=== PATIENT | male | born 1980 | race Caucasian/White ===

== ENCOUNTER → 2018-04-17 | Outpatient (CLI) | payer OTHER | LOC: COL.RAD 07:27 | DX: S46.011A Strain of muscle(s) and tendon(s) of the rotator cuff of right shoulder, initial encounter (principal); M19.011 Primary osteoarthritis, right shoulder; X58.XXXA Exposure to other specified factors, initial encounter; Y99.0 Civilian activity done for income or pay | CPT/HCPCS: A9585; Q9967 ==

== ENCOUNTER 2018-04-19 09:13 | Outpatient (RCR) | payer OTHER | END 2018-04-23 14:40 | disposition home or self-care (01) | LOC: WSOH 09:13 | DX: S46.011A Strain of muscle(s) and tendon(s) of the rotator cuff of right shoulder, initial encounter (principal); X58.XXXA Exposure to other specified factors, initial encounter; Y92.59 Other trade areas as the place of occurrence of the external cause; Y99.0 Civilian activity done for income or pay; Z79.1 Long term (current) use of non-steroidal anti-inflammatories (NSAID) ==

== ENCOUNTER 2018-05-02 05:29 | Day surgery (SDC) | payer OTHER ==
[~2018-05-02] VITALS: Ht 170.2 cm; Wt 99.2 kg
[2018-05-02 06:10] VITALS: BP 122/81; PULSE 54; TEMP 97.3
[2018-05-02 10:05] VITALS: BP 128/87; PULSE 63; TEMP 97.4
[2018-05-02 10:20] VITALS: BP 132/82; PULSE 63
[2018-05-02 10:35] VITALS: BP 133/82; PULSE 64
[2018-05-02] MEDS ORDERED: NORCO 325 MG-7.1 TAB PO (10:36)
[2018-05-02] MEDS ORDERED: ROXICODONE 55 MG/TAB PO (10:37)
[2018-05-02 10:50] VITALS: BP 127/92; PULSE 73
[2018-05-02 11:05] VITALS: BP 126/78; PULSE 73
== END 2018-05-02 15:21 | disposition home or self-care (01) ==
LOC: SDCO 05:29
DX: S46.011A Strain of muscle(s) and tendon(s) of the rotator cuff of right shoulder, initial encounter (principal); S46.111A Strain of muscle, fascia and tendon of long head of biceps, right arm, initial encounter; Z98.52 Vasectomy status
CPT/HCPCS: C1713; J0171; J1885; J2250; J2405; J2704; J2795; J3010; J7120

== ENCOUNTER → 2019-06-21 | Outpatient (CLI) | payer BC ==
[~2019-06-21] MED LIST: NORCO 325 MG-7.1 TAB PO; ROXICODONE 55 MG/TAB PO
== END ==
LOC: COL.RAD 09:36
DX: C62.12 Malignant neoplasm of descended left testis (principal); N20.0 Calculus of kidney; Z90.79 Acquired absence of other genital organ(s)
CPT/HCPCS: Q9967

== ENCOUNTER → 2020-01-06 | Outpatient (CLI) | payer BC | LOC: COL.RAD 09:12 | DX: K76.0 Fatty (change of) liver, not elsewhere classified (principal) ==

== ENCOUNTER → 2020-07-08 | Outpatient (CLI) | payer BC | LOC: COL.RAD 07:38 | DX: C62.90 Malignant neoplasm of unspecified testis, unspecified whether descended or undescended (principal); N28.1 Cyst of kidney, acquired; Z90.79 Acquired absence of other genital organ(s) | CPT/HCPCS: Q9967 ==

== ENCOUNTER 2020-11-14 13:06 | Inpatient (IN) | payer BC ==
[~2020-11-14] VITALS: Ht 167.6 cm; Wt 96.0 kg
[2020-11-14] VITALS (189 sets, daily range): BP systolic 108–124; BP diastolic 69–81; PULSE 76–84; TEMP 98.2–100.9; O2SAT 84–98
[2020-11-14 13:52] LABS: BASO % 0.3 % (0.0-2.0); GRAN # 5.9 (1.4-6.5); GRAN % 81.5 % (42.2-75.2); HEMATOCRIT 37.3 % (42.0-52.0); HEMOGLOBIN 13.4 g/dl (13.5-18.0); LYMPH # 0.8 (1.2-3.4); LYMPH % 10.9 % (20.0-51.0); MEAN CELL VOLUME 82 fl (80.0-100.0); MEAN CORPUSCULAR HEMOGLOBIN 29 pg (27.0-31.0); MEAN CORPUSCULAR HGB CONC 36 g/dl (33.0-37.0); MEAN PLATELET VOLUME 9.4 fl (7.4-10.4); MONO # 0.5 (0.1-0.6); PLATELET COUNT 254 K/mm3 (130-400); RED BLOOD COUNT 4.56 M/mm3 (4.20-5.60); REDCELL DISTRIBUTION WIDTH-CV 12.7 % (11.5-14.5)
[2020-11-14 14:04] LABS: ALBUMIN 3.9 gm/dL (3.5-5.0); BILIRUBIN,TOTAL 0.9 mg/dL (0.0-1.0); CALCIUM 8.5 mg/dL (8.4-10.2); CREATININE, serum 0.92 (0.66-1.25); POTASSIUM 3.7 mmol/L (3.4-5.0); TOTAL PROTEIN 7.4 gm/dL (6.4-8.2)
[2020-11-14 14:28] LABS: C-REACTIVE PROTEIN 16.5 mg/dL (0.0-0.9)
[2020-11-15] VITALS (409 sets, daily range): BP systolic 108–126; BP diastolic 66–80; PULSE 68–77; TEMP 97.6–98.8; O2SAT 75–100
--- NOTE | 2020-11-15 03:32 | NUR ---
Patient had an uneventful night, vitals have been stable. Around 3am, he started coughing excessivly and desat to the low 80's. I gave him one dose of Robitussin. He doesn't complain of shortness of breath or any dizzyness. He stated he has a "tickle" in his throat. His vitals are currently, HR 86, BP is 122/80 and satting at 94.
--- NOTE | 2020-11-15 07:08 | NUR ---
Patient had an uneventful night other than a coughing episode at 3AM. He then fell asleep and around 530am he started desatting to the low 80's, Respiratory was called and they are currently still assisting the patient.
[2020-11-15 07:24] LABS: BASO % 0.1 % (0.0-2.0); GRAN # 6.7 (1.4-6.5); GRAN % 85.8 % (42.2-75.2); HEMATOCRIT 39.7 % (42.0-52.0); HEMOGLOBIN 13.4 g/dl (13.5-18.0); LYMPH # 0.6 (1.2-3.4); LYMPH % 7.4 % (20.0-51.0); MEAN CELL VOLUME 86 fl (80.0-100.0); MEAN CORPUSCULAR HEMOGLOBIN 29 pg (27.0-31.0); MEAN CORPUSCULAR HGB CONC 34 g/dl (33.0-37.0); MEAN PLATELET VOLUME 9.6 fl (7.4-10.4); MONO # 0.5 (0.1-0.6); MONO % 6.3 % (1.7-9.3); PLATELET COUNT 286 K/mm3 (130-400); RED BLOOD COUNT 4.62 M/mm3 (4.20-5.60); REDCELL DISTRIBUTION WIDTH-CV 12.9 % (11.5-14.5)
[2020-11-15 07:34] LABS: CALCIUM 8.6 mg/dL (8.4-10.2); CREATININE, serum 0.85 (0.66-1.25); MAGNESIUM 2.6 mg/dL (1.6-2.3)
--- NOTE | 2020-11-15 10:37 | NUR ---
SW met with patient via phone about care. Patient report that he resides locally with his Agnes . Patient reports that his PCP is Dr. Lozano and last appointment was six months ago. Patient reports that he uses [facility]. Patient indicated that he does not need any DME supports. Patient last +11/09. Ame is on high flow oxygen. Preliminary assessment, educated client on clinical review and watching for additional care needs. Following.
[2020-11-16] VITALS (780 sets, daily range): BP systolic 113–127; BP diastolic 72–84; PULSE 66–80; TEMP 98–98.8; O2SAT 62–99
[2020-11-16 05:49] LABS: BASO % 0.2 % (0.0-2.0); GRAN # 9.4 (1.4-6.5); GRAN % 86.6 % (42.2-75.2); HEMOGLOBIN 12.5 g/dl (13.5-18.0); LYMPH # 0.6 (1.2-3.4); LYMPH % 5.9 % (20.0-51.0); MEAN CELL VOLUME 84 fl (80.0-100.0); MEAN CORPUSCULAR HEMOGLOBIN 30 pg (27.0-31.0); MEAN CORPUSCULAR HGB CONC 35 g/dl (33.0-37.0); MEAN PLATELET VOLUME 9.8 fl (7.4-10.4); MONO # 0.7 (0.1-0.6); MONO % 6.7 % (1.7-9.3); PLATELET COUNT 295 K/mm3 (130-400); RED BLOOD COUNT 4.23 M/mm3 (4.20-5.60); REDCELL DISTRIBUTION WIDTH-CV 12.8 % (11.5-14.5)
[2020-11-16 05:51] LABS: HEMATOCRIT 35.5 % (42.0-52.0)
[2020-11-16 06:01] LABS: CALCIUM 8.6 mg/dL (8.4-10.2); CREATININE, serum 0.74 (0.66-1.25); MAGNESIUM 2.4 mg/dL (1.6-2.3); POTASSIUM 4.1 mmol/L (3.4-5.0)
--- NOTE | 2020-11-16 07:00 | NUR ---
RECEIVED REPORT FROM ESTELA LUCIO. ASSUMED CARE OF PT AT THIS TIME.
--- NOTE | 2020-11-16 11:30 | NUR ---
Track Greaser contacted Nicole Macario RN-CM at [facility] who advised they have no DPOA-HC on file for patient. Patient's legal next of kin is his , Agnse.
--- NOTE | 2020-11-16 13:56 | NUR ---
Chaplain martinez for patient while standing outside of door.
--- NOTE | 2020-11-16 19:23 | NUR ---
Received report from ESTELA Tomlinson. All medications verified and all questions answered. Patient in droplet/contact precautions d/t positive covid test result. Patient resting in bed on Bipap watching TV. VSS. Will resume care at this time.
[2020-11-17] VITALS (735 sets, daily range): BP systolic 113–134; BP diastolic 58–87; PULSE 62–91; TEMP 98.3–100.4; O2SAT 58–100
[2020-11-17 06:02] LABS: BASO % 0.2 % (0.0-2.0); EOS % 0.2 % (0-4.0); GRAN % 86.3 % (42.2-75.2); HEMATOCRIT 38.1 % (42.0-52.0); LYMPH # 0.9 (1.2-3.4); LYMPH % 7.4 % (20.0-51.0); MEAN CELL VOLUME 85 fl (80.0-100.0); MEAN CORPUSCULAR HEMOGLOBIN 29 pg (27.0-31.0); MEAN CORPUSCULAR HGB CONC 34 g/dl (33.0-37.0); MEAN PLATELET VOLUME 9.6 fl (7.4-10.4); MONO # 0.6 (0.1-0.6); MONO % 4.7 % (1.7-9.3); PLATELET COUNT 281 K/mm3 (130-400); RED BLOOD COUNT 4.48 M/mm3 (4.20-5.60); REDCELL DISTRIBUTION WIDTH-CV 12.9 % (11.5-14.5)
[2020-11-17 06:13] LABS: CALCIUM 8.6 mg/dL (8.4-10.2); CREATININE, serum 0.88 (0.66-1.25); MAGNESIUM 2.3 mg/dL (1.6-2.3); POTASSIUM 3.9 mmol/L (3.4-5.0)
--- NOTE | 2020-11-17 07:00 | NUR ---
RECEIVED REPORT FROM ESTELA WATERMAN. ASSUMED CARE OF PT AT THIS TIME.
--- NOTE | 2020-11-17 07:10 | NUR ---
PT'S OXYGEN SATURATION ON ICU MONITOR TO BE 65-75%. PT NOTED TO HAVE REMOVED BIPAP TO DRINK WATER. INSTRUCTED TO PLACE BIPAP BACK ON. PT'S WORK OF BREATHING APPEARS LABORED. AFTER BIPAP PLACED, SPO2 INCREASED TO 83-85% AND PT'S WORK OF BREATHING IMPROVING. RT AT BEDSIDE AT THIS TIME FOR ASSESSMENT. PT REMAINS ON BIPAP FOR THE TIME BEING TO MONITOR OXYGEN LEVEL. SPO2 NOW AT 90-92%.
[2020-11-18] VITALS (490 sets, daily range): BP systolic 82–134; BP diastolic 37–91; PULSE 68–88; TEMP 98.2–100.9; O2SAT 71–100
[2020-11-18 05:19] LABS: BASO % 0.1 % (0.0-2.0); EOS # 0.1 (0.0-0.7); EOS % 0.6 % (0-4.0); GRAN # 9.5 (1.4-6.5); GRAN % 85.1 % (42.2-75.2); HEMOGLOBIN 12.6 g/dl (13.5-18.0); LYMPH # 0.9 (1.2-3.4); LYMPH % 8.1 % (20.0-51.0); MEAN CELL VOLUME 84 fl (80.0-100.0); MEAN CORPUSCULAR HEMOGLOBIN 30 pg (27.0-31.0); MEAN CORPUSCULAR HGB CONC 35 g/dl (33.0-37.0); MEAN PLATELET VOLUME 9.5 fl (7.4-10.4); MONO # 0.5 (0.1-0.6); MONO % 4.8 % (1.7-9.3); PLATELET COUNT 230 K/mm3 (130-400); RED BLOOD COUNT 4.24 M/mm3 (4.20-5.60); REDCELL DISTRIBUTION WIDTH-CV 12.8 % (11.5-14.5)
[2020-11-18 05:21] LABS: HEMATOCRIT 35.6 % (42.0-52.0)
[2020-11-18 05:28] LABS: CALCIUM 8.6 mg/dL (8.4-10.2); CREATININE, serum 0.75 (0.66-1.25); MAGNESIUM 2.3 mg/dL (1.6-2.3); POTASSIUM 3.9 mmol/L (3.4-5.0)
[2020-11-18 06:04] LABS: ARTERIAL BLD GAS O2 SATURATION 93.9 % (92-100); ARTERIAL BLD GAS TCO2 CT 25.7; ARTERIAL BLOOD GAS BASE EXCESS 1.2 (-2-2); ARTERIAL BLOOD GAS HCO3 24.6 meq/L (22-26); ARTERIAL BLOOD GAS PCO2 35.2 mmHg (35-45); ARTERIAL BLOOD GAS PO2 70.3 mmHg (80-100); ARTERIAL BLOOD GAS pH 7.46 (7.35-7.45)
--- NOTE | 2020-11-18 06:24 | NUR ---
Patient had an uneventful night. He was on the bipap during his sleeping hours and maintained his saturation above 90 percent. Twice he desatted to the low 80's and high 70's when he went to use the urinal. But his saturations returned upon rest. The patient had a temperature of 100.9 around 4AM and he received tylenol. He is currently resting and vitals are stable. He is back on the Airvo and maintaining a saturation of 92.
--- NOTE | 2020-11-18 07:00 | NUR ---
RECEIVED REPORT FROM ESTELA LUCIO. ASSUMED CARE OF PT AT THIS TIME.
--- NOTE | 2020-11-18 15:16 | NUR ---
Cnc Cutting Operator contacted patient's , Agnes to introduce self and check in. Agnes denies any concerns at this time and SW will continue to follow.
[2020-11-19] VITALS (560 sets, daily range): BP systolic 108–123; BP diastolic 60–77; PULSE 66–91; TEMP 97.1–98.9; O2SAT 73–100
[2020-11-19 05:23] LABS: BASO % 0.2 % (0.0-2.0); EOS # 0.1 (0.0-0.7); EOS % 0.6 % (0-4.0); GRAN % 86.3 % (42.2-75.2); HEMOGLOBIN 12.9 g/dl (13.5-18.0); LYMPH # 0.7 (1.2-3.4); LYMPH % 5.8 % (20.0-51.0); MEAN CELL VOLUME 84 fl (80.0-100.0); MEAN CORPUSCULAR HEMOGLOBIN 29 pg (27.0-31.0); MEAN CORPUSCULAR HGB CONC 35 g/dl (33.0-37.0); MEAN PLATELET VOLUME 9.7 fl (7.4-10.4); MONO # 0.7 (0.1-0.6); MONO % 5.8 % (1.7-9.3); PLATELET COUNT 249 K/mm3 (130-400); RED BLOOD COUNT 4.43 M/mm3 (4.20-5.60); REDCELL DISTRIBUTION WIDTH-CV 12.7 % (11.5-14.5)
[2020-11-19 05:31] LABS: CALCIUM 8.7 mg/dL (8.4-10.2); CREATININE, serum 0.73 (0.66-1.25); MAGNESIUM 2.5 mg/dL (1.6-2.3); POTASSIUM 4.5 mmol/L (3.4-5.0)
[2020-11-19 10:18] LABS: ALBUMIN 3.2 gm/dL (3.5-5.0); BILIRUBIN UNCONJUGATED 0.5 mg/dL (0.0-1.1); BILIRUBIN,DIRECT 0.2 mg/dL (0.0-0.4); BILIRUBIN,TOTAL 0.7 mg/dL (0.0-1.0); TOTAL PROTEIN 6.5 gm/dL (6.4-8.2)
--- NOTE | 2020-11-19 19:10 | NUR ---
Report given to ESTELA Mclaughlin
[2020-11-20] VITALS (186 sets, daily range): BP systolic 101–112; BP diastolic 68–80; PULSE 65–92; TEMP 98–99; O2SAT 43–99
[2020-11-20 05:20] LABS: BASO % 0.2 % (0.0-2.0); EOS # 0.1 (0.0-0.7); EOS % 0.9 % (0-4.0); HEMATOCRIT 38.9 % (42.0-52.0); HEMOGLOBIN 13.4 g/dl (13.5-18.0); LYMPH # 0.7 (1.2-3.4); LYMPH % 5.7 % (20.0-51.0); MEAN CELL VOLUME 84 fl (80.0-100.0); MEAN CORPUSCULAR HEMOGLOBIN 29 pg (27.0-31.0); MEAN CORPUSCULAR HGB CONC 34 g/dl (33.0-37.0); MEAN PLATELET VOLUME 9.7 fl (7.4-10.4); MONO # 0.9 (0.1-0.6); PLATELET COUNT 282 K/mm3 (130-400); RED BLOOD COUNT 4.62 M/mm3 (4.20-5.60); REDCELL DISTRIBUTION WIDTH-CV 12.9 % (11.5-14.5)
[2020-11-20 05:31] LABS: CREATININE, serum 0.71 (0.66-1.25); POTASSIUM 4.5 mmol/L (3.4-5.0)
--- NOTE | 2020-11-20 08:30 | NUR ---
Patient lying in bed with Airvo in place. He is currently on 60L/80% FiO2 and maintaining at 95%. Patient tolerating this well. He states that he still gets very short of breath with activity but recovers easily at rest. He continues to have a good appetite and tries to be independent with all ADLs.
--- NOTE | 2020-11-20 10:20 | NUR ---
Patient to transfer up to the medical floor today. Patient remains on 60 liters of oxygen. SW collaborated with Hospitalist about discharge planning and Hospitalist does not feel patient needs a [facility] referral at this time. PT has been ordered for patient and SW will continue to follow.
--- NOTE | 2020-11-20 10:35 | NUR ---
Report called to ESTELA Man. Patient will be taken to room 305 soon
--- NOTE | 2020-11-20 17:53 | NUR ---
Pt arrived to floor at lunchtime. Resting in bed and can get up ad alexnadro to bathroom. While in room practiced getting up to bathroom with AIRVO in place and confirmed that it will reach all the way to the bathroom and pt agrees he will keep it in place and on at all times. Denies pain or other needs. Lungs are crackly at bases and diminished, PICC to ROSEMARIE. Taking PO well, but eating slowly per doctors recommendations. Remains on AIRVO at 60L/80%. Will give shift report to nightshift nurse who will resume care.
--- NOTE | 2020-11-20 20:50 | NUR ---
Patient assessed at this time. Alert and oriented x 4, and able to make needs known. Denies having pain and discomfort at this time. Double lumen PICC to RUE. Dressing CDI. Denies having SOB and dsypnea, at rest, but does with exertion. Respirations shallow and labored. LS CTA in upper lobes, diminished in lower. On Airvo at 60L 80%. Switched over to BIPAP for the night. HRR. Capillary refill less than 3 seconds. Non-tenting skin turgor. BSAx4. Abdomen soft and non-tender. No edema. Voices no questions, needs, or concerns at this time. Resting in bed with call light within reach.
[2020-11-21 04:37] VITALS: BP 114/68; PULSE 75; TEMP 98.2
[2020-11-21 05:48] LABS: HEMATOCRIT 37.7 % (42.0-52.0); HEMOGLOBIN 13.1 g/dl (13.5-18.0); MEAN CELL VOLUME 84 fl (80.0-100.0); MEAN CORPUSCULAR HEMOGLOBIN 29 pg (27.0-31.0); MEAN CORPUSCULAR HGB CONC 35 g/dl (33.0-37.0); MEAN PLATELET VOLUME 10.1 fl (7.4-10.4); PLATELET COUNT 251 K/mm3 (130-400); RED BLOOD COUNT 4.51 M/mm3 (4.20-5.60); REDCELL DISTRIBUTION WIDTH-CV 12.9 % (11.5-14.5)
[2020-11-21 05:56] LABS: CALCIUM 8.9 mg/dL (8.4-10.2); CREATININE, serum 0.74 (0.66-1.25); POTASSIUM 4.5 mmol/L (3.4-5.0)
--- NOTE | 2020-11-21 05:57 | NUR ---
Patient has been resting in bed with call light within reach. Wearing BIPAP. Labs drawn this morning from PICC per protocol. Voices no questions, needs, or concerns at this time. Resting in bed with call light within reach.
[2020-11-21 06:16] LABS: BAND 2 % (0-10); LYMPHOCYTE 6 % (20.0-51.0); NEUTROPHILS 86 % (42.0-75.2)
[2020-11-21 06:17] LABS: PLATELET ESTIMATE NORMAL (NORMAL)
--- NOTE | 2020-11-21 07:00 | NUR ---
Report received from ESTELA Deal. pT in bed resting with eyes closed and bipap on, will continue to monitor.
[2020-11-21 08:22] VITALS: BP 111/62; PULSE 81; TEMP 98.7
--- NOTE | 2020-11-21 08:40 | NUR ---
Assessment charted. Pt feels well today. AIRVO is back up to max at 60L 93%. Saturations are good and does not appear to be working hard to breath. PICC to ROSEMARIE flushes well and good blood return. Eating breakfast in bed. Denies needs or pain, will continue to monitor.
[2020-11-21 12:40] VITALS: BP 99/83; PULSE 78; TEMP 98.3
[2020-11-21 16:33] VITALS: BP 110/79; PULSE 74; TEMP 98.2
--- NOTE | 2020-11-21 18:20 | NUR ---
Pt resting in bed, wearing Airvo. No concerns at this time.
[2020-11-21 20:11] VITALS: BP 131/76; PULSE 77; TEMP 98.6
[2020-11-21 23:20] VITALS: BP 113/72; PULSE 68; TEMP 98.4
[2020-11-22 04:29] VITALS: BP 115/73; PULSE 61; TEMP 98.3
--- NOTE | 2020-11-22 06:45 | NUR ---
PT SLEEPING AT THIS TIME. BIPAP IN PLACE, WILL RETURN FOR ASSESSMENT. NO FURTHER CONCERNS AT THIS TIME.
[2020-11-22 06:58] LABS: HEMOGLOBIN 12.5 g/dl (13.5-18.0); MEAN CELL VOLUME 87 fl (80.0-100.0); MEAN CORPUSCULAR HEMOGLOBIN 30 pg (27.0-31.0); MEAN CORPUSCULAR HGB CONC 34 g/dl (33.0-37.0); MEAN PLATELET VOLUME 10.1 fl (7.4-10.4); PLATELET COUNT 244 K/mm3 (130-400); RED BLOOD COUNT 4.21 M/mm3 (4.20-5.60)
[2020-11-22 07:05] LABS: HEMATOCRIT 36.4 % (42.0-52.0)
[2020-11-22 07:11] LABS: CALCIUM 8.8 mg/dL (8.4-10.2); CREATININE, serum 0.7 (0.66-1.25); POTASSIUM 4.6 mmol/L (3.4-5.0)
[2020-11-22 07:50] VITALS: BP 91/48; PULSE 76; TEMP 98.1
[2020-11-22 08:17] LABS: BAND 3 % (0-10); LYMPHOCYTE 8 % (20.0-51.0); NEUTROPHILS 82 % (42.0-75.2); PLATELET ESTIMATE NORMAL (NORMAL)
[2020-11-22 08:18] LABS: OVALOCYTES 1+
--- NOTE | 2020-11-22 10:02 | NUR ---
PT HAS NO COMPLAINTS. AIRVO ON, PT IS TACHYPNIC WHILE AMBULATING AND RECOVERING. O2 AT 60L 89%. PT IS STABLE AT THIS TIME. NO FURTHER CONCERNS.
[2020-11-22 11:24] VITALS: BP 112/75; PULSE 82; TEMP 98.4
[2020-11-22 16:08] VITALS: BP 108/69; PULSE 84; TEMP 98.6
--- NOTE | 2020-11-22 19:43 | NUR ---
PT HAD UNEVENTFUL DAY. DENIES ANY PAIN. NO FURTHER CONCERNS. REPORT GIVEN TO ESTELA ANDRE
[2020-11-22 19:59] VITALS: BP 130/80; PULSE 66; TEMP 98.1
[2020-11-23] VITALS (7 sets, daily range): BP systolic 90–132; BP diastolic 62–87; PULSE 67–100; TEMP 97.4–98.6
[2020-11-23 06:49] LABS: HEMATOCRIT 37.1 % (42.0-52.0); HEMOGLOBIN 12.6 g/dl (13.5-18.0); MEAN CELL VOLUME 87 fl (80.0-100.0); MEAN CORPUSCULAR HEMOGLOBIN 29 pg (27.0-31.0); MEAN CORPUSCULAR HGB CONC 34 g/dl (33.0-37.0); MEAN PLATELET VOLUME 9.9 fl (7.4-10.4); PLATELET COUNT 263 K/mm3 (130-400); RED BLOOD COUNT 4.28 M/mm3 (4.20-5.60); REDCELL DISTRIBUTION WIDTH-CV 13.1 % (11.5-14.5)
--- NOTE | 2020-11-23 06:49 | NUR ---
2021 ON 11/22/20 BEGAN TO WEAN OXYGEN ON AIRVO. PTS BEGINNING SETTINGS WERE 60LPM AND 85%. PTS SATURATIONS WERE IN THE LOW TO MID 90'S WITH AIRVO SETTINGS AT 40LPM AND 60%. PLACED PT ON BIPAP AT 2230 WITH SETTINGS OF 14/10 RATE OF 12 AND 50%. SATURATIONS REMAINED IN THE MID 90'S. AT 0158 FOR ALBUTEROL HFA TX PLACED PT ON A GREEN HIGH FLOW CANNULA AT 15 LPM. PT SATURATIONS REMAINED IN THE MID TO LOW 90'S WITH NO SHORTNESS OF BREATH OR DESATURATION. PT REMAINED ON REGULAR GREEN HIGHFLOW CANNULA. WILL CONTINUE TO MONITOR AND ASSESS.
[2020-11-23 06:57] LABS: CALCIUM 8.7 mg/dL (8.4-10.2); CREATININE, serum 0.69 (0.66-1.25)
--- NOTE | 2020-11-23 07:00 | NUR ---
Report received from ESTELA Daley. Pt in bed resting, sitting up awake, 02 at 96% right now on 15L HFNC. Pt tolerating well, updated Don with RT regarding 02 needs.
--- NOTE | 2020-11-23 07:07 | NUR ---
PATIENT ON 10LPM GREEN HF, SPO2 92%, COARSE T/O.
[2020-11-23 08:18] LABS: BAND 4 % (0-10); EOSINOPHIL 2 % (0-4); LYMPHOCYTE 12 % (20.0-51.0); NEUTROPHILS 77 % (42.0-75.2); PLATELET ESTIMATE NORMAL (NORMAL)
--- NOTE | 2020-11-23 09:30 | NUR ---
Assessment charted. Pt at rest in room, states he does not feel short of breath or that work of breathing has increased or changed at all. Pt resting quietly, eating and drinking well. 02 down to 9L HFNC and saturations are around 91%. PICC to ROSEMARIE. Denies pain or other needs, will continue to monitor.
--- NOTE | 2020-11-23 17:55 | NUR ---
Pt resting in chair at sideo f bed at this time, oxygen at 9L HFNC and saturations at 98%. Feeling well, denies needs, will continue to monitor.
[2020-11-24 03:07] VITALS: BP 120/72; PULSE 65; TEMP 98
[2020-11-24 06:49] VITALS: BP 116/62; PULSE 72; TEMP 98.6
[2020-11-24 08:05] LABS: CALCIUM 8.9 mg/dL (8.4-10.2); CREATININE, serum 0.66 (0.66-1.25); POTASSIUM 4.1 mmol/L (3.4-5.0)
[2020-11-24 08:20] LABS: HEMATOCRIT 37.1 % (42.0-52.0); HEMOGLOBIN 12.5 g/dl (13.5-18.0); MEAN CELL VOLUME 86 fl (80.0-100.0); MEAN CORPUSCULAR HEMOGLOBIN 29 pg (27.0-31.0); MEAN CORPUSCULAR HGB CONC 34 g/dl (33.0-37.0); MEAN PLATELET VOLUME 10.1 fl (7.4-10.4); PLATELET COUNT 283 K/mm3 (130-400); RED BLOOD COUNT 4.32 M/mm3 (4.20-5.60)
--- NOTE | 2020-11-24 08:40 | NUR ---
PT PLEASANT, AOX4, DENIES PAIN/DISCOMFORT, REPORTS LOWEST OXYGEN SAT DROPS TO W/ ACTIVITY IS 87% BUT COMES RIGHT BACK UP. PT ON 10L NC CURRENTLY AND SATTING 93%. PT BREAKFAST BROUGHT INTO ROOM, FRESH ICE WATER BROUGHT IN, NO OTHER NEEDS AT THIS TIME.
[2020-11-24 08:47] VITALS: BP 110/72; PULSE 75; TEMP 97.7
[2020-11-24 08:48] LABS: BAND 2 % (0-10); LYMPHOCYTE 10 % (20.0-51.0); METAMYELOCYTE 1 % (0-0); NEUTROPHILS 80 % (42.0-75.2); PLATELET ESTIMATE NORMAL (NORMAL)
--- NOTE | 2020-11-24 12:57 | NUR ---
PT SATTING 97% ON 10L NC. WEANED TO 8L NC, PT STARTED SATTING 84%, TURNED BACK UP TO 10L NC AND PT SATTING IN 90'S AGAIN.
[2020-11-24 12:59] VITALS: BP 118/62; PULSE 89; TEMP 97.8
[2020-11-24 15:44] VITALS: BP 128/72; PULSE 95; TEMP 97.7
--- NOTE | 2020-11-24 17:36 | NUR ---
PT ON 10L NC, CORRECTIONAL OFFICER LOOKING FOR SOME CHICKEN THAT WAS REPORTEDLY DROPPED OFF AT 1545. PT DENIES PAIN OR DISCOMFORT, INDEPENDENT IN ROOM, REPORTS SOME SOB WITH ACTIVITY, NO OTHER NEEDS
--- NOTE | 2020-11-24 19:29 | NUR ---
Patient alert and oriented. Patient laying in bed upon enter the room. Patient denies any pain or discomfort. Denies SOB/dyspnea while at rest. SPO2 90-91% on 10L via high flow. Right upper arm PICC site has no s/s of complications. Ice chips offered per patient request. Call light within reach. Patient denies further needs at this time.
[2020-11-24 19:56] VITALS: BP 110/58; PULSE 101; TEMP 98
[2020-11-25 20:00] VITALS: BP 116/70; PULSE 112; TEMP 98.7
[2020-11-25 23:53] VITALS: BP 106/82; PULSE 83; TEMP 99.1
--- NOTE | 2020-11-26 00:23 | NUR ---
PATIENT SITTING ON THE BENCH IN HIS ROOM WITH 15L HIGH FLOW NC. O2 SATURATION AT 96% AT THIS TIME. PATIENT DENIES ANY SOB, PAIN, OR DISCOMFORT AT THIS TIME.
[2020-11-26 04:00] VITALS: BP 100/64; PULSE 97; TEMP 98.7
--- NOTE | 2020-11-26 08:22 | NUR ---
PT AOX4, DENIES PAIN, REPORTS SOME SOB W/ ACTIVITY, PT PLEASANT, ALL MEDICATIONS GIVEN, PT ON 15L NC, PT HAVING ACTIVE COUGH W/ SPUTUM PRODUCTION, COUGH SYRUP GIVEN WITH OTHER MEDS. WATER AND BREAKFAST BROUGHT IN FOR PT, NO OTHER NEEDS AT THIS TIME.
[2020-11-26 09:00] VITALS: BP 126/66; PULSE 106; TEMP 98.1
[2020-11-26 10:19] LABS: CALCIUM 8.8 mg/dL (8.4-10.2); CREATININE, serum 0.75 (0.66-1.25); POTASSIUM 4.5 mmol/L (3.4-5.0)
[2020-11-26 12:00] VITALS: BP 124/66; PULSE 109; TEMP 99.2
[2020-11-26 13:18] LABS: MEAN CELL VOLUME 86 fl (80.0-100.0); MEAN CORPUSCULAR HEMOGLOBIN 29 pg (27.0-31.0); MEAN CORPUSCULAR HGB CONC 34 g/dl (33.0-37.0); PLATELET COUNT 274 K/mm3 (130-400); RED BLOOD COUNT 4.43 M/mm3 (4.20-5.60); REDCELL DISTRIBUTION WIDTH-CV 13.2 % (11.5-14.5)
[2020-11-26 13:19] LABS: BAND 2 % (0-10); EOSINOPHIL 2 % (0-4); LYMPHOCYTE 9 % (20.0-51.0); NEUTROPHILS 80 % (42.0-75.2); PLATELET ESTIMATE NORMAL (NORMAL)
--- NOTE | 2020-11-26 14:20 | NUR ---
Tobacco Drummer Angélica staffed with Hospitalist regarding sending a referral to [facility]. This SW faxed referral and contacted Bautista with [facility] regarding the referral. RENETTA collaborated the above information with the patient's nurse.
--- NOTE | 2020-11-26 15:56 | NUR ---
Bautista with [facility] reports that the patient is clinically appropriate for [facility]. Bautista to follow up with this SW on 11/27 for availablity.
[2020-11-26 16:00] VITALS: BP 122/84; PULSE 87; TEMP 99.3
--- NOTE | 2020-11-26 17:10 | NUR ---
PT REQUESTED COUGH SYRUP, COUGH SYRUP GIVEN, WATER BROUGHT IN FOR PT, PT PLEASANT, PT SHOWERED INDEPENDENTLY, PT DENIES PAIN OR DISCOMFORT, UNEVENTFUL SHIFT OVERALL. PT STILL ON 15L. NO OTHER NEEDS AT THIS TIME.
[2020-11-26 19:36] VITALS: BP 108/68; PULSE 105; TEMP 99.7
[2020-11-26 23:47] VITALS: BP 100/72; PULSE 88; TEMP 99.3
[2020-11-27 04:30] VITALS: BP 102/78; PULSE 89; TEMP 98.8
--- NOTE | 2020-11-27 07:15 | NUR ---
Pt resting with eyes closed, even non labored breathing
[2020-11-27 07:51] VITALS: BP 124/78; PULSE 85; TEMP 98.4
--- NOTE | 2020-11-27 08:00 | NUR ---
Pt doing well this morning. States that he had a good night. Does not feel short of breath, but he is on 9L and stating around 89%. RT in to see patient at this time as well. No needs verbalized, he does have his breakfast.
[2020-11-27 11:58] VITALS: BP 118/80; PULSE 84; TEMP 97.7
--- NOTE | 2020-11-27 12:02 | NUR ---
Pt doing well, no complaints, or needs. Call light within reach, will continue to monitor
--- NOTE | 2020-11-27 14:26 | NUR ---
Pt transferring to [facility] at 1530. Pt aware and has no questions
--- NOTE | 2020-11-27 14:41 | NUR ---
Bautista with [facility] reports they can accept the patient this day. The team, the patient, and patient's were in agreeance. The patient will discharge to [facility] today, 11/27. [address] Dubose accepting physician. [facility] to shredder picker at 1530. faxed discharge orders. There are no additional needs.
[2020-11-27 15:13] VITALS: BP 118/80; PULSE 84; TEMP 97.7
--- NOTE | 2020-11-27 15:50 | NUR ---
Report called to [facility]AG[facility] vidal, pt left via EMS at this time
== END 2020-11-27 15:50 | DRG 177 ==
LOC: COL.ER 13:06 → MEDICAL 15:04 → ICU 15:04 → PEDS 15:04 → ICU 15:57 → MEDICAL 11-20 10:41
PROVIDERS: Internal Medicine; Internal Medicine Pulmonary Disease; Nurse Practitioner; ADMIT Student in an Organized Health Care Education/Training Program
PROC: XW033E5 Introduction of Remdesivir Anti-infective into Peripheral Vein, Percutaneous Approach, New Technology Group 5 (ICD-10-PCS; principal; 2020-11-14)
PROC: XW13325 Transfusion of Convalescent Plasma (Nonautologous) into Peripheral Vein, Percutaneous Approach, New Technology Group 5 (ICD-10-PCS; 2020-11-14)
PROC: 02HV33Z Insertion of Infusion Device into Superior Vena Cava, Percutaneous Approach (ICD-10-PCS; 2020-11-17)
DX: U07.1 COVID-19 (principal); J12.82 Pneumonia due to coronavirus disease 2019; J96.01 Acute respiratory failure with hypoxia; G47.33 Obstructive sleep apnea (adult) (pediatric); Z85.47 Personal history of malignant neoplasm of testis; E66.9 Obesity, unspecified; R74.01 Elevation of levels of liver transaminase levels; Z68.34 Body mass index [BMI] 34.0-34.9, adult
CPT/HCPCS: 99223-AI; 99231-AI; 99232-AI; 99233-AI; 99239; C1751; J0696; J1650; J1885; J7030; J7050; J8540

== ENCOUNTER → 2021-03-12 | Outpatient (CLI) | payer BC | LOC: COL.VAS 12:17 | DX: R06.02 Shortness of breath (principal); I08.0 Rheumatic disorders of both mitral and aortic valves ==

== ENCOUNTER 2023-01-03 13:46 | Outpatient (RCR) | payer OTHER | END 2023-01-29 | disposition home or self-care (01) | LOC: WSOH | DX: S46.012D Strain of muscle(s) and tendon(s) of the rotator cuff of left shoulder, subsequent encounter (principal); Y99.0 Civilian activity done for income or pay ==